=== PATIENT | male | born 1955 | race Two or more races ===

== ENCOUNTER 2017-09-29 06:22 | Emergency (ER) | payer OTHER, MEDICAID ==
[~2017-09-29] VITALS: Ht 170.2 cm; Wt 131.5 kg
[2017-09-29 08:01] VITALS: BP 122/75
== END 2017-09-29 08:01 | disposition home or self-care (01) ==
LOC: ED 06:22
DX: S16.1XXA Strain of muscle, fascia and tendon at neck level, initial encounter (principal); E11.9 Type 2 diabetes mellitus without complications; E78.00 Pure hypercholesterolemia, unspecified; X58.XXXA Exposure to other specified factors, initial encounter; Y93.89 Activity, other specified; Y92.89 Other specified places as the place of occurrence of the external cause; Y99.8 Other external cause status
CPT/HCPCS: J3010

== ENCOUNTER 2018-02-16 16:13 | Emergency (ER) | payer OTHER, MEDICAID ==
[~2018-02-16] VITALS: Ht 170.2 cm; Wt 126.1 kg
[2018-02-16 16:37] VITALS: Ht 170.2 cm; Wt 126.1 kg
[2018-02-16 17:42] LABS: BASOPHIL % 0.2 % (0-2); PLATELET COUNT 134 x10^3mcL (130-400); RED CELL DISTRIBUTION WIDTH 13.8 % (11.5-14.5)
[2018-02-16 17:51] LABS: CALCIUM 9.9 mg/dL (8.5-10.1); CARBON DIOXIDE 29.3 mmol/L (21-32); CREATININE SERUM 2.4 mg/dL (0.7-1.3); POTASSIUM SERUM 4.4 mmol/L (3.5-5.1)
[2018-02-16 17:56] LABS: BILIRUBIN TOTAL 0.7 mg/dL (0.20-1.00); TOTAL PROTEIN, SERUM 7.7 g/dL (6.4-8.2)
[2018-02-16 17:59] LABS: ALBUMIN 2.7 g/dL (3.4-5.0)
[2018-02-16 20:32] VITALS: BP 144/73
== END 2018-02-16 20:32 | disposition home or self-care (01) ==
LOC: ED 16:13
PROVIDERS: Emergency Medicine
DX: R42 Dizziness and giddiness (principal); R53.1 Weakness; E11.65 Type 2 diabetes mellitus with hyperglycemia; I10 Essential (primary) hypertension; E78.00 Pure hypercholesterolemia, unspecified; Z98.890 Other specified postprocedural states
CPT/HCPCS: 36415; 83880; Q0092

== ENCOUNTER 2018-02-19 20:16 | Emergency (ER) | payer OTHER, MEDICAID ==
[~2018-02-19] VITALS: Ht 170.2 cm; Wt 126.6 kg
[2018-02-19 20:18] VITALS: Ht 170.2 cm; Wt 126.6 kg
[2018-02-19 21:08] VITALS: BP 106/60
== END 2018-02-19 21:08 | disposition home or self-care (01) ==
LOC: ED 20:16
DX: B35.4 Tinea corporis (principal); I10 Essential (primary) hypertension; E11.9 Type 2 diabetes mellitus without complications; E78.00 Pure hypercholesterolemia, unspecified

== ENCOUNTER 2018-06-27 17:07 | Observation (INO) | payer OTHER, MEDICAID ==
[~2018-06-27] VITALS: Ht 170.2 cm; Wt 124.7 kg
[2018-06-27 17:12] VITALS: Ht 170.2 cm; Wt 124.7 kg
--- NOTE | 2018-06-27 17:20 | NUR ---
PATIENT PRESENTED TO THE ED WITH SOB AND PRODUCTIVE COUGH. PATIENT STATES THAT PRODUCTIVE COUGH STARTED A WEEK AGO. BREATHING IS LABORED, LUNG SOUNDS CLEAR IN BILATERAL UPPER AND LOWER LOBES. BS X 4 HEARD ON AUSCULATION, ABD SOFT, NON TENDER, NON DISTENDED. PATIENT HAS A HISTORY OF HAVING CARDIAC BYPASS SURGERY, SEVERAL YEARS BACK. PATIENT WAS PLACED ON ALL MONITORS FOR CONTINUED OBSERVATION. GURNEY PLACED IN LOW POSITION, SIDE RAILS UP AND CALL LIGHT WITHIN REACH. WILL CONTINUE TO MONITOR.
--- NOTE | 2018-06-27 18:01 | NUR ---
HHN TX GIVEN. ALBUTEROL 5MG AND ATROVENT 0.5MG.
[2018-06-27 18:06] LABS: BASOPHIL % 0.1 % (0-2); PLATELET COUNT 149 x10^3mcL (130-400); RED CELL DISTRIBUTION WIDTH 13.4 % (11.5-14.5)
--- NOTE | 2018-06-27 18:25 | NUR ---
PATIENT ON GURNEY GETTING RESPIRATORY TREATMENT. PATIENT IS ON 2 L OF O2 VIA NC AND STILL HAVING SOB. PATIENT ALSO PLACED ON LEAD PRINTER. WILL CONTINUE TO MONITOR FOR S/S OF DISTRESS.
--- NOTE | 2018-06-27 19:02 | NUR ---
PATIENT UNABLE TO PROVIDE URINE SAMPLE. WILL CONTINUE TO FOLLOW UP. PATIENT RESTING ON [facility].
[2018-06-27 19:17] LABS: CALCIUM 9.9 mg/dL (8.5-10.1); CARBON DIOXIDE 31.4 mmol/L (21-32); CREATININE SERUM 1.6 mg/dL (0.7-1.3); POTASSIUM SERUM 4.5 mmol/L (3.5-5.1)
--- NOTE | 2018-06-27 19:18 | NUR ---
PT APPEARS TO BE IN NO DISTRESS AT THIS TIME. RT AT BEDSIDE FOR ABG BLOOD DRAW. PT O2 SATURATION WNL. NO DISTRESS NOTED. WILL CONTINUE TO MONITOR.
[2018-06-27 19:29] LABS: ALBUMIN 3.4 g/dL (3.4-5.0); BILIRUBIN TOTAL 0.96 mg/dL (0.20-1.00)
[2018-06-27 19:30] LABS: TOTAL PROTEIN, SERUM 8.8 g/dL (6.4-8.2)
--- NOTE | 2018-06-27 20:24 | NUR ---
RADHA, KNIFEMAN FOR PATIENT'S INSURANCE CALLED STATING THAT PT CANNOT BE ADMITTED DUE TO LACK OF INSURANCE COVERAGE TO THIS HOSPITAL. WOULD LIKE TO TRANSFER PT TO [facility]. PT VERBALIZED THAT HE IS OKAY WITH BEING TRANSFERED OUT. WILL HEAR BACK FROM RADHA AFTER SHE FINDS BED. PT'S FAMILY AWARE.
--- NOTE | 2018-06-27 21:44 | NUR ---
PT'S FAMILY MADE AWARE OF TRANSFER. STILL UNKNOWN WHAT HOSPITAL PT WILL BE GOING TO, BUT PT VERBALIZED UNDERSTANDING.
--- NOTE | 2018-06-27 22:59 | NUR ---
PT TRANSFERED TO TELEMETRY WITH RN AND EMT. PT TOLERATED TRANSFER WELL. REPORT PROVIDED TO HUSSAIN.
[2018-06-27 23:10] VITALS: BP 133/66
--- NOTE | 2018-06-27 23:20 | NUR ---
RECEIVED PT FROM ER, PT ADMIT FOR CHF, PT IS A/O X4, VERBAL RESPONSIVE, ABLE TO TELL WHAT HE NEEDS. LUNG SOUND WHEEZING FLORI, PT IS ON 2L/MIN O2 VIA NC. PO2 94%, DENY ANY SOB AT THIS TIME BUT OCCASIONALLY DRY COUGH, PT IS ON TELE 8, NSR, DENY ANY CHEST PAIN, BOWEL SOUND PRESENT ALL 4 QUADRANTS, NO DISTENTION, NO TENDER. PEDAL PULSE PRESENT BOTH FEE, TRACE EDEMA, RIGHT FOOT ALL TOES ARE AMPUTATED. IV AT LEFT WIRST, NO LEAKING, NO INFILTRATION. ALL ADLS ASSIST, ALL NEED MEET, CALL LIGHT IN REACH, WILL CONTINUE TO MONTIOR.
--- NOTE | 2018-06-27 23:50 | NUR ---
PT IS RESTING IN BED. DENIES ANY PAIN OR DISTRESS AT THIS TIME. EQUAL CHEST RISE AND FALL. ON 2L NC. ON TELE #8, NSR. DENIES ANY CHEST PAIN. AMPUTATED TOES NOTED ON RLE. GENERAL WEAKNESS. TRACE BLE EDEMA NOTED. IV ON L WRIST, 22G. INACT AND PATENT. BOTHER AT BEDSIDE. MED REC COLLECTED. BED IS AT LOWEST SETTING. CALL LIGHT WITHIN REACH. MD MIRAMONTES PAGED FOR ORDERS. WILL CONTINUE TO MONITOR.
[2018-06-28] VITALS (7 sets, daily range): BP systolic 109–143; BP diastolic 56–70
[2018-06-28] MEDS ORDERED: LANTUS SOLOS100 U/M1 SQ (00:12)
[2018-06-28] MEDS ORDERED: HUMALOG100 U/ML SQ (00:14)
[2018-06-28] MEDS ORDERED: LIPITOR40 MG PO (00:14)
[2018-06-28] MEDS ORDERED: JANUVIA100 M1 PO (00:16)
[2018-06-28] MEDS ORDERED: FUROSEMIDE40 MG PO (00:17)
[2018-06-28] MEDS ORDERED: ZESTRIL20 MG PO (00:18)
[2018-06-28] MEDS ORDERED: ASPIR LOW81 MG PO (00:19)
[2018-06-28] MEDS ORDERED: ALDACTONE50 MG PO (00:20)
[2018-06-28] MEDS ORDERED: CARVEDILOL3.125 M1 PO (00:20)
--- NOTE | 2018-06-28 01:51 | NUR ---
PT RESTING IN BED WITH BOTH EYES CLOSED. BREATHING EVEN AND UNLABORED. NO SIGN OF DISTRESS NOTED. ON 2L NC. BROTHER AT BEDSIDE. BED IS AT LOWEST SETTING. CALL LIGHT WIHTIN REACH. WILL CONTINUE TO MONTIOR.
[2018-06-28 06:36] LABS: CALCIUM 9.3 mg/dL (8.5-10.1); CARBON DIOXIDE 26.8 mmol/L (21-32); CREATININE SERUM 1.9 mg/dL (0.7-1.3); POTASSIUM SERUM 4.7 mmol/L (3.5-5.1)
[2018-06-28 07:28] LABS: BASOPHIL % 0.2 % (0-2); PLATELET COUNT 135 x10^3mcL (130-400); RED CELL DISTRIBUTION WIDTH 13.4 % (11.5-14.5)
--- NOTE | 2018-06-28 08:26 | NUR ---
Nutrition Note Nursing trigger received for "poor PO intake >3 days" on 06/28/18. Pt. admitted with CHF per H and P documentations. Pt. noted with no GI distress per skilled helper assessment, and does not meet high risk criteria based on screening. Pt. will be assessed as moderate risk, with initial assessment due 07/01-07/03/18.
--- NOTE | 2018-06-28 10:38 | NUR ---
PT ON BED, AWAKE, ALERT, AND ORIENTED. HAS NO COMPLAINT OF PAIN, SOB, OR DIZZINESS. RESPONDS WELL TO QUESTION AND ANSWER. WHEEZES FLORI LUNG FIELD, SYMMETRICAL CHEST EXPANSION AND UNLABORED. PT ON 2LNC, ACTIVE BOWEL SOUNDS NOTED. NON DISTENDED ABDOMEN. SIDE RAILS UP, CALL LIGHT WITHIN REACH, WILL CONTINUE TO MONITOR
[2018-06-28 11:02] LABS: UA SPECIFIC GRAVITY 1.025 (1.005-1.035); microscopic required? YES; urine erythrocyte 1+ (NEGATIVE)
[2018-06-28 11:51] LABS: AMPHETAMINE QUAL UR NONE DETECTED (See below)
--- NOTE | 2018-06-28 12:00 | NUR ---
PT'S ACCUCHECK SHOWED 438. 18 UNITS OF REGULAR INSULIN GIVEN COVERAGE
--- NOTE | 2018-06-28 12:44 | NUR ---
CHECK PT'S O2 SAT AT ROOM AIR PER DR'S ORDER. PT PLACED ON ROOM AIR FOR 5 MINS. WHEN SATURATION WAS CHECKED IT SHOWED 87-88% SAT WITH LOWEST REACHING 85% ON RA. NASAL CANNULA HAS BEEN PLACED BACK. DR. MIRAMONTES MADE AWARE
--- NOTE | 2018-06-28 16:29 | NUR ---
PT'S ACCUCHECK SHOWED 387. 15 UNITS OF REGULAR INSULIN GIVEN COVERAGE
--- NOTE | 2018-06-28 17:28 | NUR ---
PT ON BED RESTING. BROTHER AT BEDSIDE. WILL CONTINUE TO MONITOR
--- NOTE | 2018-06-28 19:30 | NUR ---
PT IS A/O X4. ON TELE #8, NSR. DENIES ANY CHEST PAIN OR PRESSURE. PULSES ARE PRESENT. EDEMA NOTED ON BLE. LIGHT WHEEZING ON FLORI LOBES. ON 2L NC. DENIES ANY RESP DISTRESS. NON PRODUCTIVE COUGH. BOWEL SOUNDS ACTIVE X4. DENIES ANY ABD PAIN OR DISTRESS. SKIN WARM AND INTACT. DENIES ANY PAIN AT THIS TIME. IV ON L WRIST, SLAINE LOCKED. SITE CLEAN AND INTACT. DENIES ANY PAIN AT THIS TIME. BED IS AT LOWEST SETTING. CALL LIGHT WITHIN REACH. BROTHER IS AT BEDSIDE. WILL CONTINUE TO [facility].
--- NOTE | 2018-06-29 00:50 | NUR ---
PT IS RESTING IN BED WITH BOTH EYES CLOSED. BREATHING EVEN AND UNALBORED. NO SIGN OF DISTRESS NOTED. ON 2L NC. BED IS AT LOWEST SETTING. CALL LIGHT WITHIN REACH. WILL CONTINUE TO MONITOR.
--- NOTE | 2018-06-29 02:00 | NUR ---
ASSUMED CARE OF PATIENT. PATIENT APPEARS COMFORTABLE IN BED ON 2L NC. IV SALINE LOCKED. BED LOCKED AND IN LOWEST POSITION. CALL LIGHT AND BEDSIDE TABLE WITHIN REACH. WILL CONTINUE TO MONITOR.
--- NOTE | 2018-06-29 02:06 | NUR ---
ENDORSE ALL CARE TO ONCOMING NURSE IVELISSE.
[2018-06-29 06:02] VITALS: BP 87/50
[2018-06-29 07:16] LABS: CALCIUM 9.4 mg/dL (8.5-10.1); CARBON DIOXIDE 32.6 mmol/L (21-32); CREATININE SERUM 2.1 mg/dL (0.7-1.3); MAGNESIUM 2.2 mg/dL (1.8-2.4); POTASSIUM SERUM 5.3 mmol/L (3.5-5.1)
[2018-06-29 07:28] LABS: BASOPHIL % 0.1 % (0-2); PLATELET COUNT 147 x10^3mcL (130-400); RED CELL DISTRIBUTION WIDTH 13.6 % (11.5-14.5)
--- NOTE | 2018-06-29 07:30 | NUR ---
SEEN IN BED AAOX4. DENIES PAIN. ON TELE#8 NSR. NO SOB NOTED, BREATHING TX ONGOING BY RT AT BEDSIDE, O2SAT 93% ON CCHO DIET. STATED ABLE TO AMBULATE TO BATHROOM. S/L TO LEFT WRIST INTACT. ON LOVENOX PROPHYLAXIS. PLAN OF CARE DISCUSSED. CALL LIGHT PLACED WITHIN EASY REACH. SIDERAILS UP X2.
--- NOTE | 2018-06-29 07:46 | NUR ---
NO SIGNIFICANT EVENTS THIS SHIFT. CARE ENDORSED TO MARCI ALTAMIRANO.
--- NOTE | 2018-06-29 09:00 | NUR ---
DOCTOR FE MADE AWARE OF BUN/CR =76/2.1, K= 5.3 AND LOW BP 87/33(MAP 52), HR 60. LASIX IV DISCONTINUED.
[2018-06-29 09:10] VITALS: BP 87/33
[2018-06-29 11:00] VITALS: BP 105/53
--- NOTE | 2018-06-29 11:01 | NUR ---
500ML NS BOLUS GIVEN, RECHECKED BP 105/53(MAP 64), HR 67. DENIES HEADACHE OR DIZZINESS. IVF NS AT 100ML/HR CONTINUED.
[2018-06-29 12:05] VITALS: BP 115/62
[2018-06-29 12:21] LABS: CALCIUM 8.7 mg/dL (8.5-10.1); CARBON DIOXIDE 29.8 mmol/L (21-32); CREATININE SERUM 2.2 mg/dL (0.7-1.3); POTASSIUM SERUM 4.4 mmol/L (3.5-5.1)
--- NOTE | 2018-06-29 13:34 | NUR ---
LATEST BUN/CREATININE RESULT AND ULTRASOUND OF KIDNEY NOTIFIED TO DOCTOR MIRAMONTES VIA PHONE. NEW ORDER TO CONSULT NEPHROLOGY, AM LABS AND CANCELLED DISCHARGE MADE. WILL BE CARRIED OUT.
[2018-06-29 15:53] VITALS: BP 103/50
--- NOTE | 2018-06-29 19:42 | NUR ---
DENIES PAIN. TOLERATED TO DIET WELL. BRP. HAD BM TODAY. ALL SCHEDULED MEDS GIVEN. IVF NS TO LT WRIST INFUSING WELL.
--- NOTE | 2018-06-29 20:00 | NUR ---
RECEIVED PT IN BED, A/O X4. RESTING QUIETLY IN BED. DENIES HEADACHE/DIZZINESS. RESP. EVEN AND UNLABORED, 02 AT 3.5L/MIN VIA NC,SAT. 95% , HOB ELEVATED, NO ACUTE DISTRESS NOTED. SR /SB ON THE MONITOR, DENIES CHEST PAIN OR ANY DISCOMFORT. IVF, NS AT 100ML/HR, INTACT AND INFUSING VIA LT WRIST. SITE CLEAR. WITH GEN. WEAKNESS, ABLE TO TURN AND REPOSITION SELF IN BED. NO COMPLAINTS NOTED AT THIS TIME.ASSISTED WITH HS CARE. CALL LIGHT WITHIN REACH. WILL CONTINUE TO MONITOR.
[2018-06-29 20:22] VITALS: BP 94/51
[2018-06-29 21:05] LABS: CREATININE UR 53.9 mg/dL
--- NOTE | 2018-06-29 21:59 | NUR ---
DUE MEDS GIVEN ORDERED, EDD. WELL. WILL CONTINUE TO MONITOR.
--- NOTE | 2018-06-30 02:22 | NUR ---
EYES CLOSED , APPEARS ASLEEP, EASILY AROUSABLE. [address], NO ACUTE DISTRESS NOTED. WILL CONTINUE TO MONITOR.
[2018-06-30 05:03] VITALS: BP 133/72
--- NOTE | 2018-06-30 06:26 | NUR ---
SLEPT WELL DURING THE NIGHT, NO SIGNIFICANT CHANGE NOTED IN PT,S CONDITION. RESP. EVEN AND UNLABORED, [address], EDD. WELL AND SAT. WELL. NO ACUTE DISTRESS NOTED. AFEBRILE AND VITAL SIGNS STABLE. DUE MEDS GIVEN ORDERED. EDD. WELL. IVF INTACT AND INFUSING WELL, SITE CLEAR. KEPT COMFORTABLE. VOIDING FREELY. WILL ENDORSE TO INCOMING NURSE.
[2018-06-30 06:29] LABS: BASOPHIL % 0.3 % (0-2); PLATELET COUNT 137 x10^3mcL (130-400); RED CELL DISTRIBUTION WIDTH 12.8 % (11.5-14.5)
[2018-06-30 06:53] LABS: BILIRUBIN TOTAL 0.4 mg/dL (0.20-1.00); CARBON DIOXIDE 32.2 mmol/L (21-32); CREATININE SERUM 1.6 mg/dL (0.7-1.3); POTASSIUM SERUM 5.1 mmol/L (3.5-5.1)
[2018-06-30 07:00] LABS: ALBUMIN 2.6 g/dL (3.4-5.0)
--- NOTE | 2018-06-30 07:15 | NUR ---
SEEN AAOX4. NO SOB NOTED, O2 3.5L N/C MAINTAINED. TELE# 8 NSR. DENIES CHEST PAIN. STATED ABLE TO AMBULATE TO BATHROOM. IVF NS TO LT WRIST INFUSING AT 100ML/HR. ON LOVENOX SQ PROPHYLAXIS. PLAN OF CARE DISCUSSED. CALL LIGHT PLACED WITHIN EASY REACH. SIDERAILS UP X2.
--- NOTE | 2018-06-30 07:39 | NUR ---
STATED JUST WALKED BACK FROM THE BATHROOM HAD BM. DENIES DISCOMFORT. STATED FEEL BETTER TODAY. ON CCHO DIET. O2 TANK AT BEDSIDE FOR DISCHARGE HOME.
[2018-06-30 09:29] VITALS: BP 113/58
[2018-06-30 14:06] VITALS: BP 131/67
[2018-06-30 16:32] VITALS: BP 117/64
--- NOTE | 2018-06-30 18:17 | NUR ---
NO ANY DISTRESS THROUGHOUT SHIFT. DENIES PAIN. AMBULATORY TO BATHROOM WITH STEADY GAIT. HOME O2 TANK AT BEDSIDE. SPOKE TO REGAL REGUARDING HOME O2 CONCENTRATOR STATED WILL BE DELIVERIED TODAY. IVF NS COMTINUED AT 100ML/HR TO LEFT WRIST IV SITE, NO INFILTRATION NOTED. ALL SCHEDULED MEDS GIVEN.
--- NOTE | 2018-06-30 19:47 | NUR ---
RECEIVED PT FROM DAY SHIFT RN. PT AAOX4, DENIES HEADACHE OR DIZZINESS. TELE #8 NSR HR 75, DENIES CHEST PAIN. DIMININSHED LUNG SOUNDS, NC 2L/MIN NO SOB NOTED. IV LEFT WRIST, PATENT INFUSING WELL. CALL BUTTON WITHIN REACH. WILL CONTINUE TO MONITOR.
[2018-06-30 20:36] VITALS: BP 131/67
--- NOTE | 2018-06-30 23:49 | NUR ---
PT RESTING, NC 2L/MIN NO SIGNS OF DISTRESS NOTED. IV INFUSING WELL. WILL CONTINUE TO MONITOR.
--- NOTE | 2018-07-01 01:15 | NUR ---
RANDOM ACCU CHECK RESULT OF 143. PT DENIES ANY PAIN. NO SIGNS OF DISTRESS NOTED. IV INFUSING WELL. WILL CONTINUE TO MONITOR.
--- NOTE | 2018-07-01 04:26 | NUR ---
ROUNDS MADE. PT IS ASLEEP. BREATHING EVEN AND UNLABORED. NC 2L/MIN IN PLACE, NO SOB NOTED. IV INFUSING WELL. WILL CONTINUE TO MONITOR.
--- NOTE | 2018-07-01 05:25 | NUR ---
PT AWAKE, DENIES ANY PAIN. NO SIGNS OF ACUTE DISTRESS NOTED. NC 2L/MIN NO SOB NOTED. PT SLEPT ON AND OFF THROUGHOUT THE NIGHT, WITH NO SIGNS OF DISTRESS. MEDICATED PER EMAR. IV TO LEFT WRIST PATENT, INFUSING WELL. WILL CONTINUE TO MONITOR AND ENDORSE CARE TO DAY SHIFT RN.
[2018-07-01 05:30] VITALS: BP 129/68
[2018-07-01 06:42] LABS: CALCIUM 8.6 mg/dL (8.5-10.1); CARBON DIOXIDE 30.6 mmol/L (21-32); CREATININE SERUM 1.3 mg/dL (0.7-1.3); POTASSIUM SERUM 5.3 mmol/L (3.5-5.1)
--- NOTE | 2018-07-01 07:02 | NUR ---
SEEN IN BED AAOX4. NO RESP DISTRESS NOTED. O2 2LPM N/C MAINTAINED. DENIES PAIN. DIMINISHED LUNG SOUND. GEN BODY WEAKNESS. ABLE TO AMBULATE TO BATHROOM. ON CCHO DIET. LAST BM WAS 06/30/18. STATED VOIDS FREELY. IVF NS TO LT WRIST INFUSING WELL. TELE# 8 NSR. OWN O2 TANK AT BEDSIDE. PLAN OF CARE DISCUSSED. CALL LIGHT PLACED WITHIN EASY REACH. SIDERAILS UP X2.
--- NOTE | 2018-07-01 07:11 | NUR ---
PATIENT AWAKE TALKING ON THE PHONE, NO SIGNS OF DISTRESS NOTED. ENDORSED CARE TO DAY SHIFT RN, ALL QUESTIONS ADDRESSED.
[2018-07-01 08:46] LABS: PLATELET COUNT 131 x10^3mcL (130-400); RED CELL DISTRIBUTION WIDTH 13.2 % (11.5-14.5)
[2018-07-01 08:47] LABS: BASOPHIL % 0.8 % (0-2)
[2018-07-01 10:28] VITALS: BP 136/70
--- NOTE | 2018-07-01 14:35 | NUR ---
SEEN BY DOCTOR ZORAIDA, PATIENT WILL BE DISCHARGED HOME TODAY. PATIENT VERBALIZED UNDERSTANDING.
--- NOTE | 2018-07-01 15:30 | NUR ---
DISCHARGE INSTRUCTION/PRESCRITION GIVEN TO PATIENT. PATIENT VERBALIZED UNDERSTANDING. IV CATHETER TO LEFT WRIST REMOVED NO SIGNS OF INFECTION NOTED, DRSG APPLIED. TELE#8 RETURNED TO ND. DENIES DISCOMFORT AT THIS TIME. WILL BE DISCHARGED HOME VIA O2 2LPM N/C VIA OWN O2TANK. PER PATIENT O2 CONCENTRATOR ALREADY DELIVERIED AT HOME SINCE LAST NIGHT.
--- NOTE | 2018-07-01 15:35 | NUR ---
SEEN BY DOCTOR CONWAY, PER DOCTOR CONWAY PATIENT WILL BE DISCHARGED HOME TODAY.
--- NOTE | 2018-07-01 16:30 | NUR ---
BROUGHT VIA WHEELCHAIR TO LOBBY. NO ANY DISTRESS NOTED. PICKED UP BY [employer]IVATE AUT[employer].
== END 2018-07-01 16:35 | disposition home or self-care (01) | DRG 291 ==
LOC: ED 17:07 → DU 22:20
PROVIDERS: Emergency Medicine; Internal Medicine Nephrology; Internal Medicine Pulmonary Disease; ADMIT Internal Medicine Pulmonary Disease
DX: I13.0 Hypertensive heart and chronic kidney disease with heart failure and stage 1 through stage 4 chronic kidney disease, or unspecified chronic kidney disease (principal); I50.43 Acute on chronic combined systolic (congestive) and diastolic (congestive) heart failure; N17.0 Acute kidney failure with tubular necrosis; J96.11 Chronic respiratory failure with hypoxia; E87.3 Alkalosis; Z68.41 Body mass index [BMI] 40.0-44.9, adult; N18.3 Chronic kidney disease, stage 3 (moderate); J20.9 Acute bronchitis, unspecified; J45.909 Unspecified asthma, uncomplicated; E11.22 Type 2 diabetes mellitus with diabetic chronic kidney disease; E78.5 Hyperlipidemia, unspecified; F11.11 Opioid abuse, in remission; E66.01 Morbid (severe) obesity due to excess calories; Z79.4 Long term (current) use of insulin; Z89.421 Acquired absence of other right toe(s); Z95.1 Presence of aortocoronary bypass graft; Z87.891 Personal history of nicotine dependence
CPT/HCPCS: 82962; 83880; 87804; G0378; J1650; J1815; J1940; J2930; J7030; J7040; J7613; J7620; J7644; Q0092

== ENCOUNTER 2018-12-24 14:22 | Emergency (ER) | payer OTHER ==
[~2018-12-24] VITALS: Ht 170.2 cm; Wt 127.9 kg
[~2018-12-24 14:22] MED LIST: ALDACTONE50 MG PO; ASPIR LOW81 MG PO; CARVEDILOL3.125 M1 PO; FUROSEMIDE40 MG PO; HUMALOG100 U/ML SQ; JANUVIA100 M1 PO; LANTUS SOLOS100 U/M1 SQ; LIPITOR40 MG PO; ZESTRIL20 MG PO
[2018-12-24 14:43] VITALS: BP 115/64; Ht 170.2 cm; Wt 127.9 kg
== END 2018-12-24 16:25 | disposition home or self-care (01) ==
LOC: ED 14:22
DX: S80.02XA Contusion of left knee, initial encounter (principal); I10 Essential (primary) hypertension; E11.9 Type 2 diabetes mellitus without complications; E78.00 Pure hypercholesterolemia, unspecified; W10.8XXA Fall (on) (from) other stairs and steps, initial encounter; Y93.89 Activity, other specified; Y92.89 Other specified places as the place of occurrence of the external cause; Y99.8 Other external cause status

== ENCOUNTER 2019-01-20 21:01 | Emergency (ER) | payer OTHER ==
[~2019-01-20] VITALS: Ht 170.2 cm; Wt 128.4 kg
[2019-01-20 21:06] VITALS: Ht 170.2 cm; Wt 128.4 kg
[2019-01-20 22:50] LABS: BASOPHIL % 0.7 % (0-2); PLATELET COUNT 177 x10^3mcL (130-400); RED CELL DISTRIBUTION WIDTH 14.2 % (11.5-14.5)
[2019-01-20 23:04] LABS: CALCIUM 9.5 mg/dL (8.5-10.1); CARBON DIOXIDE 30.6 mmol/L (21-32); CHLORIDE SERUM 98 mmol/L (98-107); GFR1 36 mL/min; GLUCOSE SERUM 252 mg/dL (74-106); POTASSIUM SERUM 3.9 mmol/L (3.5-5.1); SODIUM SERUM 137 mmol/L (136-145)
[2019-01-20 23:13] LABS: ALKALINE PHOSPHATASE 182 U/L (46-116); ALT/SGPT 30 U/L (16-63); AST/SGOT 25 U/L (15-37); TOTAL PROTEIN, SERUM 8.1 g/dL (6.4-8.2)
[2019-01-20 23:14] LABS: ALBUMIN 3.3 g/dL (3.4-5.0)
[2019-01-20 23:42] LABS: UA SPECIFIC GRAVITY 1.025 (1.005-1.035); microscopic required? YES; urine erythrocyte 1+ (NEGATIVE)
[2019-01-20 23:42] LABS: ERYTHROCYTE SED RATE 93 mm/hr (0-20)
[2019-01-21 04:21] VITALS: BP 127/65
== END 2019-01-21 04:21 | disposition short-term general hospital (02) ==
LOC: ED 21:01
PROVIDERS: Emergency Medicine
DX: L03.115 Cellulitis of right lower limb (principal); L97.519 Non-pressure chronic ulcer of other part of right foot with unspecified severity; I10 Essential (primary) hypertension; E11.9 Type 2 diabetes mellitus without complications; E78.00 Pure hypercholesterolemia, unspecified
CPT/HCPCS: J2270; J2405; J2543; J7030; Q0092

== ENCOUNTER 2019-10-14 14:16 | Emergency (ER) | payer OTHER ==
[~2019-10-14] VITALS: Ht 170.2 cm; Wt 127.0 kg
[2019-10-14 14:22] VITALS: Ht 170.2 cm; Wt 127.0 kg
[2019-10-14 16:43] VITALS: BP 122/64
== END 2019-10-14 16:43 | disposition home or self-care (01) ==
LOC: ED 14:16
DX: S80.01XA Contusion of right knee, initial encounter (principal); S40.011A Contusion of right shoulder, initial encounter; W10.9XXA Fall (on) (from) unspecified stairs and steps, initial encounter; I10 Essential (primary) hypertension; E11.9 Type 2 diabetes mellitus without complications; Z98.890 Other specified postprocedural states; Y93.89 Activity, other specified; Y92.89 Other specified places as the place of occurrence of the external cause; Y99.8 Other external cause status
CPT/HCPCS: J1885

== ENCOUNTER 2020-03-26 09:45 | Inpatient (IN) | payer OTHER, SELFPAY ==
[~2020-03-26] VITALS: Ht 170.2 cm; Wt 145.7 kg
[~2020-03-26 09:45] MED LIST changes: +ACIDOPHILUS LA1 EACH PO; +ASPIR 8181 MG PO; +ATORVASTATIN CA40 M1 PO; +FERROUS SULFAT325 M2 PO; +LEVAQUIN500 M1 PO; +MEDDP PO; +METFORMIN HCL1000 MG PO; +PROVENTIL0.09 MG/A1 INH; +TESSALON PERLE100 MG PO; +VITAMIN C100 M2 PO; +ZITHROMAX500 MG PO; +[UNRECOGNIZED DRUG - OTHER] PO
[2020-03-26 10:01] VITALS: Ht 170.2 cm; Wt 145.7 kg
--- NOTE | 2020-03-26 10:19 | NUR ---
PLACED IN BED 12 FOR EVAL.
--- NOTE | 2020-03-26 10:43 | NUR ---
PATIENT ARRIVED FROM HOME, C/O SOB X2 MONTHS AND LEFT LEG PAIN X2 MONTHS. PATIENT STATES 9/10 PAIN AT THIS TIME. NOTED LEFT LE ULCERS AND SWELLING, PER PATIENT X2 MONTHS, HAD BEEN TAKING ANTIBIOTICS, RAN OUT, PAIN STARTED YESTERDAY .PATIENT AAOX4, AUDIABLE WHEEZING NOTED, PATIENT PLACED ON 2L OF O2 BY TRIAGE NURSE, NOTED RIGHT BELOW THE KNEE AMPUTAION (PATIENT WEARING PROSTATIC LEG), PATIENT GOWNED, SAFETY PRECaution, awaiting mse, call light within reach.
--- NOTE | 2020-03-26 11:11 | NUR ---
DR. COBB AT BEDSIDE FOR MSE AT THIS TIME
--- NOTE | 2020-03-26 11:18 | NUR ---
PATIENT O2 TURNED OF PER DR. COBB. PROVIDED PATIENT WITH PILLOW, POSITION HEAD OF BED TO COMFORT LEVEL, CALL LIGHT WITHIN REACH.
--- NOTE | 2020-03-26 11:29 | NUR ---
PATIENT STATES HE CAN NOT PROVIDE ANY URINE AT THIS TIME. PROVIDED PATIENT WITH URINAL AT BEDSIDE, CALL LIGHT WITHIN REACH.
--- NOTE | 2020-03-26 11:30 | NUR ---
LAB AT BEDSIDE AND RT
--- NOTE | 2020-03-26 11:39 | NUR ---
XRAY AT BEDSIDE
--- NOTE | 2020-03-26 12:25 | NUR ---
US AT BEDSIDE AT THIS TIME.
[2020-03-26 12:28] LABS: BILIRUBIN TOTAL 0.61 mg/dL (0.20-1.00); C REACTIVE PROTEIN 3.9 mg/dL (<=0.9); CALCIUM 8.9 mg/dL (8.5-10.1); CARBON DIOXIDE 27.9 mmol/L (21-32); CREATININE SERUM 1.5 mg/dL (0.7-1.3); POTASSIUM SERUM 4.1 mmol/L (3.5-5.1); TOTAL PROTEIN, SERUM 7.5 g/dL (6.4-8.2)
[2020-03-26 12:37] LABS: ALBUMIN 2.8 g/dL (3.4-5.0)
[2020-03-26 12:43] LABS: BASOPHIL % 0.8 % (0-2)
[2020-03-26 12:45] LABS: PLATELET COUNT 114 x10^3mcL (130-400); RED CELL DISTRIBUTION WIDTH 16.2 % (11.5-14.5)
--- NOTE | 2020-03-26 13:00 | NUR ---
PATIENT ATTEMPTED TO PROVIDE URINE. I ATTEMPTED TO COLLECT URINE USING SRAIGHT CATH, UNABLE TO ADVANCE CATHETER, NOTIFIED DR. COBB. CALL LIGHT RISSA MELTON.
--- NOTE | 2020-03-26 14:11 | NUR ---
PROVIDED PATIENT WITH FOOD AND OJ, PER DR. REZA MILTON. NAD NOTED AT THIS TIME, CALL LIGHT WITHIN REACH.
[2020-03-26] MEDS ORDERED: GLIPIZIDE XL5 M2 PO (15:34)
[2020-03-26] MEDS ORDERED: TIROSINT25 MC1 PO (15:35)
[2020-03-26] MEDS ORDERED: VITAMIN-D1000 IU PO (15:36)
--- NOTE | 2020-03-26 16:11 | NUR ---
PATIENT MEDICATED WITH FUROSEMIDE IV AND ROCEPHIN IV, PLEASE SEE EMAR, PATIENT TOLERATED WELL, CALL LIGHT DAMION MELTON.
--- NOTE | 2020-03-26 16:16 | NUR ---
ASSISTED PATIENT WITH URINEAL, CALL LIGHT WITHIN REACH
--- NOTE | 2020-03-26 16:51 | NUR ---
VANCOMYCIN IV STARTED, PLEASE SEE EMAR, PATIENT TOLERATING WELL, CALL LIGHT WITHIN REACH.
[2020-03-26 17:06] LABS: UA SPECIFIC GRAVITY 1.025 (1.005-1.035); microscopic required? YES; urine erythrocyte 1+ (NEGATIVE)
--- NOTE | 2020-03-26 17:33 | NUR ---
ASSISTED PATIENT WITH URINAL, CALL LIGHT WITHIN REACH.
--- NOTE | 2020-03-26 17:41 | NUR ---
DINNER TRAY PLACED AT BEDSIDE FOR PATIENT.
--- NOTE | 2020-03-26 19:11 | NUR ---
REPORT GIVEN TO DARRIN ALTAMIRANO TO ASSUME PATIENT CARE
--- NOTE | 2020-03-26 19:41 | NUR ---
PT SITTING UP IN GURNEY, AAO X4, C/O 3/10 LEG PAIN. AUDIBLE WHEEZING NOTED WITH LABORED BREATHING, SATURATING AT 96% RA, O2 APPLIED @2LPM TO ASSIST WITH SOB. NOTICEABLE EDEMA THROUGHOUT, LOWER LEFT EXTREMITY WITH ULCERS TO BACK OF LEG AND AROUND LEFT ANKLE, ULCER TO FRONT OF LEFT ANKLE WITH MODERATE YELLOW DRAINAGE. BELOW THE KNEE AMPUTATION TO RIGHT LEG WITH PROSTETIC LEG. ABDOMEN IS DISTENDED, PT REQUIRES ASSISTANCE WITH ADL'S AND ALL CARE, ASSISTED PT TO USE URINAL, URINATED 400 ML OF YELLOW URINE. VSS, 20 G IV IN LEFT HAND, FLUSHES FREELY WITH 10 CC NS. CALL LIGHT WITHIN REACH, WILL MONITOR.
--- NOTE | 2020-03-26 20:40 | NUR ---
PT IN ED ORALIA, PROVIDED URINAL PT URINATED 400 ML OF YELLO URINE. IV ANTIBIOTICS STARTED, VSS. PAIN 12/01 WILL PROVIDE PAIN MEDICATION TO SYMPTOM RELIEF. INFORMED PT WE ARE STILL WAITING FOR A BED
--- NOTE | 2020-03-26 20:53 | NUR ---
PT DOES NOT WANT MORPHINE FOR SEVERE PAIN, PT STATES HE WILL TAKE NORCO FOR MODERATE PAIN.
--- NOTE | 2020-03-26 22:16 | NUR ---
ARTURO TO CALL ED BACK FOR REPORT
--- NOTE | 2020-03-26 22:46 | NUR ---
ATTEMPTED TO CALL AND GIVE REPORT TO ARTURO AGAIN WITH NO SUCCESS
--- NOTE | 2020-03-26 22:58 | NUR ---
REPORT CALLED TO ARTURO ALTAMIRANO WHO WILL RESUME CARE FOR PT
--- NOTE | 2020-03-26 23:25 | NUR ---
RECEIVED PATIENT FROM ER VIA GUERNEY, TRANSPORT ASSIST PATIENT UP IN BED, ALERT AND ORIENTED, MILD RESP DISTRESS NOTED FROM EXERTION, AUDIBLE WHEEZES NOTED, ALLOW PATIENT SITUATED IN BED, O2 4LNC. PLACE T #12 NSR, HR 64 NOTED. O2SAT 100%. SOB AND LABORED BREATHING NOTED FROM EXERTION. PT ABLE TO ANSWER QUESTIONS OCCAS PAUSE TO CATCH BREATHS, ASSIST PT W/ URINAL PATIENT UNABLE TO HELP HIM SELF. CALL LIGHT WITHIN REACH, CARE ENDORSE TO ARTURO ALTAMIRANO TO TAKE WOUND PIC AND CULTURE.
[2020-03-26 23:54] VITALS: BP 140/77
--- NOTE | 2020-03-27 02:32 | NUR ---
PHOTO TAKEN ON PATIENT'S WOUNDS, WOUND CULTURE SENT.
--- NOTE | 2020-03-27 06:22 | NUR ---
BLOOD SUGAR THIS MORNING IS WAS 58, GIVEN D50, 50ML ORDERED. RECHECKED BLOOD SUGAR AND IT WENT UP TO 171. PATIENT WAS ASYMPTOMATIC.
[2020-03-27 06:57] VITALS: BP 108/46
--- NOTE | 2020-03-27 07:05 | NUR ---
RECEIVED REPORT FROM PRODUCTION CONTROL COORDINATING CLERK RN. PT IN BED AWAKE, ALERT, ABLE TO MAKE NEEDS KNOWN. ON DROPLET PRECAUTION FOR PUI COVID. ON 4LPM VIA NC 95%02 SAT WITH MILD AUDIBLE WHEEZING, DENIES SOB. ON TELE 12, DENIES CHEST PAIN/PRESSURE. IV SITE TO SALINE LOCK. DENIES PAIN OR DISCOMFORT AT THIS TIME. BED IN LOWEST POSITION. CALL LIGHT WITHIN REACH. WILL CONTINUE TO MONITOR.
[2020-03-27 07:48] LABS: BILIRUBIN TOTAL 0.5 mg/dL (0.20-1.00); CALCIUM 8.8 mg/dL (8.5-10.1); CARBON DIOXIDE 26.4 mmol/L (21-32); CREATININE SERUM 1.5 mg/dL (0.7-1.3); MAGNESIUM 2.2 mg/dL (1.8-2.4); POTASSIUM SERUM 4.5 mmol/L (3.5-5.1); TOTAL PROTEIN, SERUM 6.9 g/dL (6.4-8.2)
[2020-03-27 07:50] LABS: ALBUMIN 2.7 g/dL (3.4-5.0); CHOLESTEROL/HDL RATIO 2.2
[2020-03-27 08:34] LABS: PLATELET COUNT 99 x10^3mcL (130-400); RED CELL DISTRIBUTION WIDTH 15.8 % (11.5-14.5)
[2020-03-27 10:10] VITALS: BP 99/53
[2020-03-27 11:57] VITALS: BP 109/46
[2020-03-27 16:56] VITALS: BP 117/51
--- NOTE | 2020-03-27 19:20 | NUR ---
PT IN BED AWAKE AND ALERT. PUI STATUS FOR COVID19, PCR RESULT STILL PENDING. ON 4LPM VIA NC, NOTED WITH AUDIBLE WHEEZING. ON TELE 12, DENIES CHEST PAIN/PRESSURE. NO ACUTE RESPIRATORY DISTRESS. IV SITE TO SALINE LOCK. DENIES PAIN OR DISCOMFORT AT THIS TIME. BED IN LOWEST POSITION. ENDORSE CARE TO INCOMING RN.
--- NOTE | 2020-03-27 19:55 | NUR ---
PT RECIEVED AWAKE ALERT AND ORIENTED,REG RESP WITH AUDIBLE WHEEZZING AND DIMINSIHED TO FLORI LOWER BASES ON 3L N/C SAT 94%,HOB,ABDO IS FIRM OBSES AND WITH ACTIVE BOWEL SOUNDS,PT HAS RT BKA AND THE LT LEG WITH WOUND WHICH IS DRAINING WITH GREENISH,YELLOWISH SECREATION,PT WITH EDEMA TO THE LT LEG AND NO ABLE TO PALPATE THE PULSES PT ON TELE MONITOR AND IN NSR NO ECTOPY OR CHEST PAIN AT THIS TIME,KEPT BED IN THE LOW POSITION AND LOCKED,KEPT CLEAN AND DRY TO TOUCH AND WILL CONTINUE TO MONITOR.
[2020-03-27 20:30] VITALS: BP 115/63
--- NOTE | 2020-03-27 23:13 | NUR ---
PT HAVING BREATHING TREAMENT HOB AND WILL CONTINUE TO MONITOR.
--- NOTE | 2020-03-28 02:54 | NUR ---
PT SLEEPING SOUNDLY AND WILL CONTINUE TO MONITOR.
[2020-03-28 05:30] VITALS: BP 105/55
--- NOTE | 2020-03-28 06:09 | NUR ---
PT HAD ARESTING NIGHT NO CHANGE AT THIS TIME,WILL CONTINUE TO MONITOR.
--- NOTE | 2020-03-28 07:35 | NUR ---
PT RESTING AT THIS TIME,REG RESP NO SOB AUDIBLE WHEEZING AND DIMINISHED TO FLORI LOWER BASES,PT ON 3L N/C SAT 96%,ABDO IS SOFT OBESE WITH ACTIVE BOWEL SOUNDS,PT HAS WITH THE SITE PATENT AND INTACT,PT HAS ULCERS TO THE LT EG WHICH IS SECREATION WITH GREENISH AND YELLOWISH IN COLOR,PT HAS RT BKA AND HAS PROTHESIS AT THE BEDSIDE,BED IN THE LOW POSITION AND LOCKED,KEPT CLEAN AND DRY TO TOUCH AND WILL CONTINUE TO MONITOR.
--- NOTE | 2020-03-28 07:47 | NUR ---
CALLED FROM THE LAB WITH RESULTS OF PATIENT POSITIVE MRSA,WILL NOTIFY THE MD,WILL CONTINUE TO MONITOR.
[2020-03-28 08:29] LABS: BASOPHIL % 0.6 % (0-2)
[2020-03-28 08:47] VITALS: BP 105/45
[2020-03-28 08:49] LABS: PLATELET COUNT 95 x10^3mcL (130-400); RED CELL DISTRIBUTION WIDTH 16.9 % (11.5-14.5)
[2020-03-28 09:16] LABS: BILIRUBIN TOTAL 0.53 mg/dL (0.20-1.00); CALCIUM 9.1 mg/dL (8.5-10.1); CARBON DIOXIDE 30.6 mmol/L (21-32); CREATININE SERUM 1.9 mg/dL (0.7-1.3); MAGNESIUM 2.4 mg/dL (1.8-2.4); TOTAL PROTEIN, SERUM 7.2 g/dL (6.4-8.2)
[2020-03-28 09:27] LABS: ALBUMIN 2.7 g/dL (3.4-5.0)
[2020-03-28 09:28] LABS: POTASSIUM SERUM 5.6 mmol/L (3.5-5.1)
--- NOTE | 2020-03-28 09:47 | NUR ---
charu to the [facility] dr mon information manager to notify of patient k+ level 5.6,positive for mrsa and whether can order consult for patients the leg ulcers,waiting to be call back and will continue to monitor.
--- NOTE | 2020-03-28 09:53 | NUR ---
DR WASHINGTON CALL BACK WITH ORDERS,WILL CONTINE TO MONITOR.
--- NOTE | 2020-03-28 11:18 | NUR ---
PT WITH C/O OF PSIN ARCHING TO THE LT LEG WITH OPEN ULCERS,PT WAS MEDICATED WITH MORHINE 4 MG IV ORDER AND WILL ENDORSED TO THE NURSE TO FOLLOW UP,WILL CONTINUE TO MONITOR.
--- NOTE | 2020-03-28 11:19 | NUR ---
EDORSED TO FOLLW UP CARE.
--- NOTE | 2020-03-28 11:30 | NUR ---
RECEIVED PT REPORT ASSUMING PT CARE RESPONSABILITY.
[2020-03-28 12:51] VITALS: BP 101/49
--- NOTE | 2020-03-28 13:45 | NUR ---
REC'D REPORT FROM TAL RN. NO COMPLAINTS AT THIS TIME. BREATHING EVEN/UNLABORED ON 3L NC. TELE 12, HR 65. WILL CONTINUE TO MONITOR.
--- NOTE | 2020-03-28 15:59 | NUR ---
PT RESTING IN BED WITH AUDIBLE WHEEZE. DENIES DISTRESS. BREATHING EVEN/UNLABORED ON 3L NC, SPO2 100%. REDUCED TO 2L NC, SPO2 98%. PT C/O DRY NARES. LUBRICANT APPLIED. FEELS BETTER AFTER APPLICATION. IV TO LH DISLODGED WITH CATHETER INTACT. IV TO LFA 22G INSERTED.
[2020-03-28 17:08] VITALS: BP 102/51
--- NOTE | 2020-03-28 18:18 | NUR ---
PT AWAKE AND RESTING IN BED. BREATHING EVEN/UNLABORED ON 2L NC, SPO2 100%. MILD AUDIBLE WHEEZE. DENIES ANY RESP DISTRESS. NO SIGNIFICANT CHANGES DURING SHIFT. CALL LIGHT WITHIN REACH, BED AT LOWEST POSITION. WILL ENDORSE TO NIGHT NURSE.
--- NOTE | 2020-03-28 21:30 | NUR ---
RECEIVED AWAKE, ALERT, ORIENTED X4, BREATH SOUNDS DIMINISHED ON THE BASES WITH EXPIRATORY WHEEZING NOTED. O2 AT 2LPM VIA N/C WITH O2 SAT 95%. DENIES ANY PAIN, SR ON THE MONITOR. RIGHT BKA NOTED, LLE WITH OPEN WOUND AND DRESSING DRY AND INTACT. PLAN OF CARE NOTED AND IMPLEMENTED, ALL NEEDS ATTENDED, KEPT COMFORTABLE IN BED, WILL CONTINUE TO MONITOR.
[2020-03-28 21:43] VITALS: BP 125/60
--- NOTE | 2020-03-29 | NUR ---
RESTING IN BED, O2 AT 2LPM VIA N/C WITH O2 SAT 95%, NO ACUTE DISTRESS NOTED, WILL CONTINUE TO MONITOR.
--- NOTE | 2020-03-29 05:33 | NUR ---
C/O LLE PAIN, NORCO 1 TAB PO GIVEN, ALL NEEDS ATTENDED, WILL CONTINUE TO MONITOR.
[2020-03-29 06:10] VITALS: BP 114/54
--- NOTE | 2020-03-29 06:56 | NUR ---
SLEPT FAIRLY AT NIGHT, VSS, REMAIN ON O2 AT 2LPM VIA N/C. NO ACUTE DISTRESS NOTED, WILL CONTINUE TO MONITOR.
[2020-03-29 08:06] LABS: BILIRUBIN TOTAL 0.48 mg/dL (0.20-1.00); CALCIUM 8.8 mg/dL (8.5-10.1); CARBON DIOXIDE 29.7 mmol/L (21-32); CREATININE SERUM 2.3 mg/dL (0.7-1.3); MAGNESIUM 2.3 mg/dL (1.8-2.4); TOTAL PROTEIN, SERUM 7.2 g/dL (6.4-8.2)
[2020-03-29 08:55] VITALS: BP 129/46
[2020-03-29 09:30] LABS: ALBUMIN 2.7 g/dL (3.4-5.0); POTASSIUM SERUM 5.8 mmol/L (3.5-5.1)
--- NOTE | 2020-03-29 09:52 | NUR ---
NOTIFIED DR WASHINGTON THAT K- 5.8. RECEIVED ORDER FOR [facility]. ATTENDING NURSE ELINA MADE AWARE.
[2020-03-29 10:18] LABS: BASOPHIL % 0.5 % (0-2)
[2020-03-29 10:48] LABS: PLATELET COUNT 84 x10^3mcL (130-400); RED CELL DISTRIBUTION WIDTH 16.8 % (11.5-14.5)
[2020-03-29 13:25] VITALS: BP 123/67
[2020-03-29 17:18] VITALS: BP 127/44
[2020-03-29 21:47] VITALS: BP 106/58
--- NOTE | 2020-03-29 22:26 | NUR ---
SPOKE WITH DR HDEZ, MADE AWARE OF PCR TEST RESULT WHICH IS NEGATIVE. MAY DISCONTINUE ISOLATION NOW.
--- NOTE | 2020-03-30 | NUR ---
@0000 TRANSFERED PT TO 240 B; HAD DC ISOLATION; REPORT GIVEN TO ADARSH CANNON FOR CONTINUITY OF CARE; PT IS ALERT AND ORIENTED; NOT IN RESP DISTRESS; WITH 02 @ 2LPM VIA NC.
--- NOTE | 2020-03-30 00:20 | NUR ---
PT RECIEVED FROM 2S RN. PT RESTING IN BED AT THIS TIME. DENIES PAIN OR DISCOMFORT. PT BREATHING E/U ON 2L NC. NO S/S OF ACUTE DISTRESS NOTED. ALL NEEDS AND CONCERNS ADDRESSED. WILL CONTINUE TO MONITOR.
[2020-03-30 06:00] VITALS: BP 100/48
--- NOTE | 2020-03-30 06:22 | NUR ---
PT RESTING IN BED AT THIS TIME. DENIES PAIN OR DISCOMFORT. BREATHING E/U ON 2L NC. NO S/S OF ACUTE DISTRESS NOTED. ALL NEEDS AND CONCERNS ADDRESSED. WILL ENDORSE TO DAY NURSE.
[2020-03-30 07:20] LABS: BASOPHIL % 0.8 % (0-2)
--- NOTE | 2020-03-30 07:30 | NUR ---
RECEIVED REPORT FROM [facility] HELPER NURSE. PT IS A/OX4. TELE#12. NSR. DENIES CP AT THIS TIME. PT IS ON 2LNC. O2 SAT 98%. 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 PROSTHESIS IS IN THE ROOM. PT HAS LLE PITTING EDEMA +2. LLE WOUND WITH DRESSING. IV TO LH, PATENT, SL. PT IS ON FLUID RESTRICTIONS 1.5L. ALL PROTOCOLS IN PLACE.
[2020-03-30 07:38] LABS: BILIRUBIN TOTAL 0.47 mg/dL (0.20-1.00); CALCIUM 8.9 mg/dL (8.5-10.1); CARBON DIOXIDE 29.5 mmol/L (21-32); CREATININE SERUM 2.4 mg/dL (0.7-1.3); MAGNESIUM 2.3 mg/dL (1.8-2.4); POTASSIUM SERUM 4.8 mmol/L (3.5-5.1); TOTAL PROTEIN, SERUM 7.2 g/dL (6.4-8.2)
[2020-03-30 07:42] LABS: ALBUMIN 2.7 g/dL (3.4-5.0)
[2020-03-30 07:52] LABS: PLATELET COUNT 84 x10^3mcL (130-400); RED CELL DISTRIBUTION WIDTH 15.3 % (11.5-14.5)
--- NOTE | 2020-03-30 07:57 | NUR ---
RECEIVED PHONE CALL FROM LAB: BUN 67.0 (TRENDING UP). CALLED DR VILLANUEVA. AWAITING FOR CALL BACK.
--- NOTE | 2020-03-30 08:06 | NUR ---
RECEIVED CALL BACK FROM DR VILLANUEVA. RECEIVED ORDER TO DISCONTINUE LASIX IV PUSH DUE TO ELEVATED BUN 67 (TRENDING UP).
[2020-03-30 08:40] VITALS: BP 150/54
--- NOTE | 2020-03-30 11:00 | NUR ---
PT WAS SEEN BY DR VILLANUEVA. DR VILLANUEVA IS AWARE OF GENERALIZED SWELLING. PER DR VILLANUEVA, NO ORDER AT THIS TIME. AWAITING ON ECHO RESULT.
[2020-03-30 13:45] VITALS: BP 126/50
--- NOTE | 2020-03-30 15:50 | NUR ---
RECIVED ORDER TO DISCHARGE PT. DISCHARGE INSTRUCTIONS GIVEN AND EXPLAINED TO PT AND DAUGHTER ABOUT FOLLOW-UP APPOITMENTS/MEDICATIONS/BRACE INSTRUCTIONS. PT AND DAUGHTER VERBALIZES UNDERSTANDING. DC IV WITH CATH INTACT PER DISCHARGE ORDER. TOOK OFF TELE MONITOR. AT 1549 PT DISCHARGED IN STABLE CONDITION WITH ALL HER BELONGINGS. PT WAS TRANSFERED VIA WHEELCHAIR AND PICKED UP BY HER DAUGHTER.
--- NOTE | 2020-03-30 16:35 | NUR ---
WOUND CULTURE AND SENSITIVITY CAME BACK. NOTIFIED DR. VILLANUEVA. PER DR VILLANUEVA, KEEP ROCEPHIN IV. NO NEW ORDERS.
[2020-03-30 17:53] VITALS: BP 101/57
--- NOTE | 2020-03-30 18:14 | NUR ---
PT IS A/OX4. TELE #12. [id number]. PT IS ON 2LNC, O2 SAT 95%. LLE +3 PITTING EDEMA. L FOOT WOUND, SOME SEROUS DRAINAGE. R BKA, PROSTHESIS AT BEDSIDE, WHEELCHAIR AT BEDSIDE. PT STARTED ON LASIX DRIP 10ML/HR. ROCEPHIN WAS GIVEN PER EMAR. PT IS ON 1500ML/DAY FLUID RESTRICTION. ALL PROTOCOLS IN PLACE. WILL ENDORSE CARE TO ONCOMING NURSE.
[2020-03-30 20:14] VITALS: BP 132/46
--- NOTE | 2020-03-30 23:55 | NUR ---
ASSESSED PT AT BEGINNING OG NOC SHIFT. PT RESTING IN BED COMFORTABLY. EASILY AWOKEN AND ALERT AND ORIENTED X3. PT DENIES PAIN AT THIS TIME. PT ON 2L NC WITH AUDIBLE WHEEZING. SATURATION 97%. LUNG SOUNDS DIMINISHED WITH BILATERAL LOWER WHEEZES PRESENT. PT DENIES SOB OR ACUTE DISTRESS. NO INTERCOSTAL MUSCLES IN USE UPON ASSESSMENT. S1 AND S2 HEARD. TELE 12 WITH NSR. HR IN 60'S. PT DENIES CHEST PAIN AT THIS TIME. BOWEL SOUNDS ACTIVE AND PRESENT X4. LAST BM 03/29. PT VOIDS IN BEDSIDE URINAL WITH ASSISTANCE DUE TO OBESITY. GENERALIZED EDEMA WITH PITTING EDEMA IN LEFT LOWER EXTREMITY. PT HAS RBL AMPUTATION. DECREASED SENSATION NOTED IN BOTH LOWER EXTREMITIES UPON ASSESSMENT. L PEDAL PULSE WEAK 1+. PT NEEDS ASSISTANCE WITH ROM BUT IS ABLE TO WIGGLE TOES AND AID IN MOVEMENT. PT HAS WHEELCHAIR AT BEDSIDE. PT RUNNING LASIX 10ML/HR IN R HAND. WILL CONTINUE TO MONITOR PATIENT AT THIS TIME. WEAK IN L
--- NOTE | 2020-03-31 02:54 | NUR ---
I HAVE REVIEWED THE DATA COLLECTION BY ADARSH ALEXANDER ENTERED ON (DATE/TIME):03/30/2020 7P-7A I CONCUR WITH THE DATA AND ANY EXCEPTIONS OR COMMENTS ARE LISTED BELOW:
--- NOTE | 2020-03-31 04:49 | NUR ---
PT SLEPT PERIODICALLY THROUGHOUT THE NIGHT. MULTIPLE CALLS TO NURSES STATION FOR AID IN USING BEDSIDE URINAL TO VOID. PT VOIDED 950ML AND HAD 1 BM DURING THE NIGHT. PT STRAINED FOR BM AND WAS EDUCATED TO NOT STRAIN TO CAUSE HARM. PT DOING WELL ON 2L NC, AUDIBLE WHEEZING HAS DIMINISHED WITH WHEEZING HEARD ONLY ON AUSCULTATION. WILL CONTINUE TO MONITOR PATIENT AND REPORT TO ONCOMING RN.
[2020-03-31 05:31] VITALS: BP 142/66
[2020-03-31 06:57] LABS: BASOPHIL % 0.4 % (0-2)
[2020-03-31 07:21] LABS: BILIRUBIN TOTAL 0.5 mg/dL (0.20-1.00); CALCIUM 9.1 mg/dL (8.5-10.1); CARBON DIOXIDE 26.5 mmol/L (21-32); MAGNESIUM 2.3 mg/dL (1.8-2.4); PLATELET COUNT 90 x10^3mcL (130-400); POTASSIUM SERUM 4.5 mmol/L (3.5-5.1); RED CELL DISTRIBUTION WIDTH 16.5 % (11.5-14.5); TOTAL PROTEIN, SERUM 7.5 g/dL (6.4-8.2)
[2020-03-31 07:28] LABS: ALBUMIN 3.2 g/dL (3.4-5.0)
--- NOTE | 2020-03-31 07:30 | NUR ---
RECEIVED REPORT FROM FRONT DESK SUPERVISOR NURSE. PT IS A/OX4. TELE#12 NSR. PT IS ON 2LNC, O2 SAT 97%. PT HAS LLE +3 PITTING EDEMA. WOUND TO L FOOT WITH SOME DRAINAGE. R BKA. PROATHESIS IN THE ROOM. PT IS ON FLUID RESTRICTION 1.5L/DAY. IV TO L HAND, LASIX DRIP IS INFUSING AT 10ML/HR. ALL PROTOCOLS IN PLACE.
[2020-03-31 09:00] VITALS: BP 124/57
--- NOTE | 2020-03-31 10:00 | NUR ---
PT WAS SEEN BY DR WILLETT WHO DISSCUSSED CURRENT PLAN OF CARE WITH PT. PT AGREED TO PUT PATEL. AWAITING FOR ORDER.
--- NOTE | 2020-03-31 10:04 | NUR ---
WOUND CARE NURSE SAW PT AND PUT DRESSING ON. CLEANSED WITH WOUND CLENSER, PETTED DRY, AND APPLIED XEROFORM, 4X4 GAUZE, AND SECURED WITH S BANDAGE AROUND L LEG. SEE WOUND CARE INSTRUCTIONS.
--- NOTE | 2020-03-31 10:30 | NUR ---
Wound care evaluation note: Wound assessment done to this 64 y/o pt. aax4. Hx of right TELLY last year, stump wound healed scar. Left lower extremity chronic venous stasis ulcer +3 edema/erythema from knee to dorsal foot, dorsal pedal pulses diminished dorsal foot 3x2 dry scab, opal wound skin dry scaly. left medial ankle to anterior feet partial thickness skin loss, 7x15x0.2 cm and opal wound skin moist pale white ,weeping serous drainage, erythema, swelling with 3/10 pain to left lower extremity.POC discussed with primary RN and pt. pt. verbalizes understanding and state that he lives with his friend who can help him with dressing change.Per pt. he visited his properties supervisor regularly and will continue to follow with his doctor. Recommendations: -Keep LLE elevated, heel offloading -Cleanse LLE ulcerations with wound care solution, pad dry, apply xeroform dressing cover with 4x4 and wrap with LAURA bandage 3x/week and PRN if soiling -May discharge with wound care supplies
--- NOTE | 2020-03-31 11:50 | NUR ---
RECEIVED ORDER TO PUT PATEL FOR STRICT I/O. PATEL WAS PUT AT 11:50 USING STERILE TECHNIGUE, INFLATED WITH 10ML WATER BALOON. URINE OUTPUT: 200ML, YELLOW.
[2020-03-31 12:05] VITALS: BP 121/51
--- NOTE | 2020-03-31 12:20 | NUR ---
DR VILLANUEVA SAW PT AND TALKED ABOUT CURRENT PLAN OF CARE AND STARTING PT ON PHYSICAL THERAPY.
[2020-03-31 16:18] VITALS: BP 122/49
--- NOTE | 2020-03-31 18:41 | NUR ---
PT IS A/OX4. TELE #12, NSR 66. VS STABLE. PT IS ON 2LNC WITH HUMIDIFIER. O2 SAT 94%. LLE, COMPRESSION BANDAGE IS ON. CDI. DRESSING CHANGED TODAY BY WOUND CARE NURSE. PATEL WAS PLACED TODAY. IV TO RW, 22G, PATENT, LASIX DRIP 10MG IS INFUSING AT 10ML/HR. SYSTOLIC BP MAINTAINED ABOVE 90, SEE GRAPH. PT IS ON STRICT I/O ( FLUID RESTRICTION 1.5L). ALL PROTOCOLS IN PLACE. WILL ENDORSE CARE TO ONCOMING NURSE.
--- NOTE | 2020-03-31 19:30 | NUR ---
RECIEVED PT FROM AM RN. PT IN BED RESTING, PT A&OX4, BREATHING E/U ON 2L NC. HEART SOUNDS NORMAL S1S2, DENIES CP, LUNG SOUNDS AUSCULTATED, WHEEZING, PT DENIES SOB. BOWEL SOUNDS ACTIVE, PT HAS R BKA AND LLE CELLULITIS WRAPPED AND BANDAGED BY WOUND NURSE TODAY, LLE ELEVATED ON PILLOW. PT HAS IV TO RIGHT WRIST, LASIX RUNNING AT 10ML/HR. PROSTHESIS AND WHEELCHAIR AT BEDSIDE, PT HAS NO CONCERNS AT THIS TIME. CALL LIGHT IN REACH.
[2020-03-31 20:48] VITALS: BP 127/55
[2020-04-01 05:57] VITALS: BP 117/56
--- NOTE | 2020-04-01 06:16 | NUR ---
PT REMAINED STABLE THROUGHOUT THE NIGHT. PT HAD NO EPISODES OF ACUTE DISTRESS. PT RECIEVED TWO DOSES OF ALBUMIN AND REMAINED ON THE CONTINUOUS LASIX DRIP. PTS IV TO RIGHT WRIST REMAINS INTACT AND PATENT. PT HAS NO CONCERNS AT THIS TIME. LLE REMAINS BANDAGED IN COMPRESSION DRESSING AND ELEVATED ON PILLOW. PROTHESIS AND WHEEL CHAIR AT BEDSIDE, PT REMAINS ON 2L O2 VIA NC. CALL LIGHT IN REACH, WILL CONTINUE TO MONITOR.
--- NOTE | 2020-04-01 07:30 | NUR ---
PT REPORT RECEIVED BY FUNERAL PREARRANGEMENT COUNSELOR RN. PT IS SLEEPING, AROUSABLE TO VERBAL STIMULI. A/Ox4. DENIES ANY PAIN AND SOB. ON 2L NC, SPO2 95%. PT AGREES TO HELPING REPOSITION Q.2H TODAY AND HELPING US TRACK HIS INTAKE. WOUND DRESSING ON L LEG IS DRY AND INTACT. SAFETY PRECAUTIONS IN PLACE. CALL LIGHT WITHIN REACH. WILL CONTINUE TO MONITOR.
[2020-04-01 08:17] VITALS: BP 113/48
--- NOTE | 2020-04-01 11:00 | NUR ---
PT IS AWAKE, COMFORTABLE. DENIES ANY NEEDS THIS TIME. CALL LIGHT WITHIN REACH, WILL CONTINUE TO MONITOR.
[2020-04-01 12:47] VITALS: BP 118/59
--- NOTE | 2020-04-01 13:00 | NUR ---
JERSEY BATH ADMINISTER TO PT WITH CAROLINE HENLEY.
[2020-04-01 13:21] LABS: BILIRUBIN TOTAL 0.48 mg/dL (0.20-1.00); CALCIUM 9.5 mg/dL (8.5-10.1); MAGNESIUM 2.3 mg/dL (1.8-2.4); POTASSIUM SERUM 4.3 mmol/L (3.5-5.1); TOTAL PROTEIN, SERUM 7.4 g/dL (6.4-8.2)
[2020-04-01 13:36] LABS: ALBUMIN 3.2 g/dL (3.4-5.0)
--- NOTE | 2020-04-01 15:51 | NUR ---
1. Recommend with CCHO 60 gm/Renal as tolerated.
--- NOTE | 2020-04-01 15:51 | NUR ---
Initial Nutrition Assessment: [address] JAMA[address] LENNON 64M MR Dx: CHF exacerbation, SOB, LLE cellulitis and open wounds PMHx: HTN, T2DM, peripheral vascular disease s/p R BNA, Charcot's Arthropathy, CAD s/p CABG, morbid obesity, Hyperlipidemia. PSHx: R BNA Labs: (03/31) BG 138H, BUN 69H, Cr 2.0H, ALB 3.2L, ALT 15L, ALK 116H, RBC 2.90L, H/H 8.9L/90L, Neut% 74.1H, PLT 90L (03/26) LDH 193H, HDL 32L, HbA1C 7.0% *TRIG, CHOL, LDL wnl Meds: Humulin R, Lasix, Bactroban, Coreg, Rocephin, metolazone, Colace, Ventolin, Dextrose 50%, Potassium CHL, Klor-Con, Mg, Zofran Diet: CCHO 60 g/K2 PO intake since admission: 60% - 100%, Average 95% x 11 meals Ht: 170.18 cm/67 in Wt: 145.66 kg/320 lb BMI: 50.3 kg/m2 Bed scale: 142.7 kg/314 lbs IBW: 64 kg/141 lbs (IBW - 5.9% BKA) ABW:84 kg/186 lbs% IBW: 216% UBW: 127 kg/280 lbs (2 months ago) Age: 64 y/o Food Allergies: none per pt Edema: +3 LLE Last BM: 04/01 per pt Skin: R BKA, wound to LLE with some drainage Dar: 15 Per H and P (03/27): This is a 63-year-old male past medical history significant for hypertension, type 2 diabetes, peripheral vascular disease status post right below knee amputation, CharcoAid foot deformity, CAD status post CABG, morbid obesity and hyperlipidemia. Patient to initially presented to ED with worsening edema/erythema and pain to left lower extremity, which was accompanied by worsening shortness of breath for the past 2 to 3 weeks. Of note patient reports he is on home O2. Otherwise patient denies fever/chills, chest pain, abdominal pain, nausea/vomiting, diarrhea/constipation, headache/dizziness and urinary symptoms. In ED patient was afebrile, vital signs stable. Laboratory work-up revealed renal insufficiency, elevated LDH and CRP. Also, elevated D-dimer. Normocytic anemia hemoglobin 9.3. Chest x-ray revealed interstitial infiltrates, mild cardiomegaly. X-ray of left ankle revealed soft tissue swelling. X-ray of left foot continued to show soft tissue swelling. Ultrasound of left lower extremity negative for DVT. Patient started on IV diuresis and empiric IV antibiotics and admitted for further evaluation/treatment. Pt was admitted with dx: Acute on chronic hypoxic respiratory failure, CHF exacerbation, Normocytic anemia, CKD stage III, Left lower leg cellulitis, History of CAD, Morbid obesity, Type [address] Note (04/01): Per progress note (04/01): Kidney function slightly improved after aggressive diuresis with Lasix drip. Patient is still in respiratory distress. During visit, pt was comfortable resting in bed, awake, alert, and oriented. Pt reported good appetite, no n/v/d/c, no chewing/swallowing difficulties. Pt stated he has been tolerating well his meals. Pt reported normal BM this morning. Pt reported UBW 280 lbs with about 40 lbs weight gain (12% weight gain) in 2 months d/t lack of physical movement d/t R BKA and wound to LLE. However, pt reported he can walk about 5 feet and stops d/t SOB. Additionally, pt's food tray was observed on his bedside table, and pt ate about 70% of his meals per observation. Problem with: N/V/D/C: none per pt Problems with: Chewing: Swallowing: none per pt Current appetite: good per pt Recent wt change: 40 lbs weight gain in 2 months %wt change: 12% weight gain Height: 67 in per pt Vitamin/Supplement use: none per pt Special diet at home: none per pt, but tries to decrease the portions of his meals Physical activity: pt can walk about 5 feet Nutrition education given (specify specific nutrition education and handout given): Explained TLC diet's recommendations, addressed the importance to reduce sodium, saturated fats, cholesterol, and trans fats. Recommended to eat more omega-3 fats and carbohydrates portion control. Written material: "Cardiac-TLC Nutrition Therapy" was provided to pt and he acknowledged understanding Food-drug interactions? Education given? n/a Estimated Nutritional Needs Based on adjusted body weight (84 kg) Energy: 1680 - 2100 kcal/day (20 - 25 kcal/kg CHF, BMI > 40) Protein: 67 - 84 g/day (0.8 - 1 g/kg CHF, CKD, BMI > 40, wound) Fluid: 1680 - 2100 mL/day (20 - 25 mL/kg for CHF) or per MD Nutrition Diagnosis: 1. Altered nutrition related lab values r/t DM and CKD a/e/b BG 138, HbA1C 7.0%, BUN 69H, Cr 2.0H 2. Obesity r/t imbalance intake and output a/e/b BMI > 40 kg/m2 and lack of physical activity. Intervention 1. Recommend with CCHO 60 gm/Renal as tolerated. Monitor/Evaluate Goal: PO intake at least 75% of estimated needs Monitor: PO intake, Labs, GI function, Body Weight F/U in 3-5 days as moderate risk 04/04-
--- NOTE | 2020-04-01 16:00 | NUR ---
PT IS SLEEPING, AROUSABLE TO VERBAL STIMULI. DENIES ANY PAIN AND SOB. CALL LIGHT WITHIN REACH. WILL CONTINUE TO [place].
[2020-04-01 17:24] VITALS: BP 117/57
--- NOTE | 2020-04-01 19:00 | NUR ---
PT IS CURRENTLY AWAKE, COMFORTABLE. DENIES ANY PAIN AND SOB. TOLERATING 2L NC WELL. I&Os RECORDED THROUGHOUT SHIFT USING BEDSIDE COUNT, STUDENT AND LICENSED AIRCRAFT MAINTENANCE ENGINEER LORY AWARE AND UPDATED SHEETS. INTAKE 1171ml, OUTPUT 3175ml. LEFT LEG WOUND DRESSING DRY AND INTACT. SAFETY PRECAUTIONS IN PLACE. WILL ENDORSE CARE TO NIGHT SHIFTR RN.
--- NOTE | 2020-04-01 19:30 | NUR ---
RECEIVED PT FROM DAYSHIFT NURSE. PT IS AAOX4, DENIES HEADACHE/NAUSEA/DIZZINESS. PT IS TELE #12, NSR, DENIES CHEST PAIN. PULSES ARE EQUAL BILATERALLY, WEAK PEDAL PULSES. PATIENT HAS BUE TRACE EDEMA AND LLE +1 EDEMA. PT HAS BILATERALLY DIMINISHED LUNG SOUNDS, ON 2L NC, DENIES SOB. NO ACUTE DISTRESS NOTED, EVEN AND UNLABORED BREATHING. ABDOMEN IS SOFT AND ROUND, NO PAIN UPON PALPATION. NORMOACTIVE X4 QUADRANTS, LAST BM 04/01. PT HAS PATEL CATHETER IN PLACE, DARK URINE, DRAINING BY GRAVITY. PT HAS GENERALIZED WEAKNESS, RIGHT BKA, WHEELCHAIR AT BASELINE. PT HAS OPEN WOUND TO LLE AND LEFT FOOT, DRESSING IN PLACE, CDI. PT HAS RIGHT WRIST 22G, LASIX 10ML/HR. SITE INTACT NO REDNESS OR SWELLING OBSERVED. ALL SAFETY MEASURES IN PLACE. BED IN LOWEST POSITION, CALL LIGHT WITHIN REACH. WILL CONTINUE TO MONITOR.
[2020-04-01 20:22] VITALS: BP 118/55
--- NOTE | 2020-04-02 00:52 | NUR ---
PATIENT RESTING IN BED WITH EYES CLOSED, NO ACUTE DISTRESS NOTED AT THIS TIME. IV TO RIGHT WRIST 22G, SITE ITNACT, NO REDNESS OR SWELLING NOTED. PT HAS LASIX 10ML/HR RUNNING AT SITE. ALL SAFETY MEASURES IN PLACE. BED IN LOWEST POSITION, CALL LIGHT WITHIN REACH. WILL CONTINUE TO MONITOR.
[2020-04-02 05:46] VITALS: BP 117/55
--- NOTE | 2020-04-02 06:11 | NUR ---
LASIX IV NOW DUE FOR CHANGE, ORIGINAL SCHEDULE 0200.
--- NOTE | 2020-04-02 06:54 | NUR ---
PATIENT RESTED INTERMITTENTLY WITH EYES CLOSED THROUGHOUT THE NIGHT. PT DENIES CHEST PAIN/SOB AT THIS TIME. PATIENT IS WHEEZING AUDIBLY AT THIS TIME. PT STATES IT IS DUE TO POSITIONING. ADJUSTED PATIENT ACCORDING, ON 2L NC AT THIS TIME, DENIES SOB. PATIENT STILL WITH AUDIBLE WHEEZING. IV TO RIGHT WRIST, LASIX 10ML/HR. ALL SAFETY MEASURES IN PLACE. BED IN LOWEST POSITION, CALL LIGHT WITHIN REACH. WILL ENDORSE TO DAYSHIFT NURSE.
--- NOTE | 2020-04-02 07:30 | NUR ---
PT RECEIVED FROM BUFFING WHEEL RAKER RN. PT IS SLEEPING, AROUSABLE TO VERBAL STIMULIL. DENIES ANY PAIN THIS TIME. DIMINISHED LUNG SOUNDS, OCCASIOANL WHEEZING HEARD FLORI, PT DENIES SOB, SPO2 96% BUFFING WHEEL RAKER RN REPORTS THAT THERE IS MORE WHEEZING UPON WAKING UP. L LEG DRESSING IS DRY AND INTACT. PATEL CATHER RECENTLY EMPTIED. RUNNING 10ml/hr LASIC ON R WRIST 22g. SAFETY PRECAUTIONS INN PLACE. CALL LIGHT WITHIN REACH. WILL CONTIUE TO MONITOR.
[2020-04-02 08:18] VITALS: BP 130/61
[2020-04-02 08:24] LABS: BASOPHIL % 0.6 % (0-2)
[2020-04-02 08:29] LABS: BILIRUBIN TOTAL 0.5 mg/dL (0.20-1.00); CALCIUM 9.7 mg/dL (8.5-10.1); CARBON DIOXIDE 32.7 mmol/L (21-32); CREATININE SERUM 1.8 mg/dL (0.7-1.3); MAGNESIUM 2.1 mg/dL (1.8-2.4); POTASSIUM SERUM 4.2 mmol/L (3.5-5.1); TOTAL PROTEIN, SERUM 7.5 g/dL (6.4-8.2)
[2020-04-02 08:40] LABS: PLATELET COUNT 101 x10^3mcL (130-400); RED CELL DISTRIBUTION WIDTH 15.7 % (11.5-14.5)
[2020-04-02 08:48] LABS: ALBUMIN 3.3 g/dL (3.4-5.0)
--- NOTE | 2020-04-02 12:10 | NUR ---
PER . WEAN PT OFF OXYGEN. PT MAY BE DISCHARGED TOMORROW.
--- NOTE | 2020-04-02 12:15 | NUR ---
DR. VILLANUEVA DELEGATED A VERBAL ORDER TO ME: CCHO 60g/RENAL DIET. WILL INPUT AND CHANGE PT CURRENT DIET STATUS.
--- NOTE | 2020-04-02 12:30 | NUR ---
ASSESSED PT SPO2 AFTER OFF OF OXYGEN FOR 10min, PT DENIES SOB. SPO2 IS 88-90%. PT PLACED ON 1L NC AND SPO2 AT 95%. WILL CONTINUE TO MONITOR,
[2020-04-02 12:34] VITALS: BP 128/58
--- NOTE | 2020-04-02 14:00 | NUR ---
PT IS AWAKE, ON HIS PHONE, COMFORTABLE. DENIES ANY NEEDS THIS TIME. SAFETY PRECAUTIONS IN PLACE. WILL CONTINUE TO MONITOR.
--- NOTE | 2020-04-02 15:40 | NUR ---
DIETITIAN CO-SIGN The Nutrition Notes documented by the Electrical Controls Designer have been reviewed. Reviewed/Co-Signed by: Tao Phipps Documentation Done by: Laurence Cisneros
[2020-04-02 17:41] VITALS: BP 113/52
--- NOTE | 2020-04-02 18:15 | NUR ---
L LEG DRESSING CHANGED PER ASSOCIATE WEB DEVELOPER ORDER
--- NOTE | 2020-04-02 19:00 | NUR ---
PT IS CURRENTLY AWAKE. DENIES ANY PAIN AND SOB THIS TIME. DRESSING CHANGED DURING THIS SHIFT FOR BECAUSE IT IS SOILED. TOLERATING 1L NC WELL. SAFETY PRECAUTIONS IN PLACE. CALL LIGHT WITHIN REACH. WILL ENDORSE CARE TO SALES OPERATIONS LEAD RN
--- NOTE | 2020-04-02 19:30 | NUR ---
RECEIVED PT FROM DAYSHIFT NURSE. PT IS AAOX4, DENIES HEADACHE/NAUSEA/DIZZINESS. PT IS TELE #12, NSR, DENIES CHEST PAIN. PULSES ARE EQUAL BILATERALLY, NO EDEMA NOTED. PATIENT HAS BILATERALLY DIMINISHED LUNG SOUNDS, ON 1L NC, DENIES SOB. NO ACUTE DISTRESS NOTED, EVEN AND UNLABORED BREATHING. ABDOMEN IS OBESE, NO PAIN UPON PALPATION. NORMOACTIVE X4 QUADRANTS, LAST BM 04/02. PT USES BED CHOWDHURY, PT HAS PATEL CATHETER IN PLACE, DARK YELLOW IN COLOR. PT DEMONSTRATES GENERALIZED WEAKNESS, RIGHT BKA. PATIENT HAS OPEN WOUND TO LEFT FOOT AND LEFT LEG, DRESSING IN PLACE, CDI. PT DENIES PAIN AT THIS TIME. IV TO RIGHT WRIST 22G, LASIX 12ML/HR. PT IS CALM AND COOPERATIVE. ALL SAFETY MEASURES IN PLACE. BED IN LOWEST POSITION, CALL LIGHT WITHIN REACH. WILL CONTINUE TO MONITOR.
[2020-04-02 19:56] VITALS: BP 115/50
--- NOTE | 2020-04-03 01:20 | NUR ---
PATIENT RESTING INTERMITTENTLY WITH EYES CLOSED. IV TO RIGHT WRIST RUNNING LASIX 12ML/HR. PATIENT DENIES SOB AT THIS TIME. PATIENT REMAINS ON 1L NC. ALL SAFETY MEASURES IN PLACE. BED IN LOWEST POSITION, CALL LIGHT WITHIN REACH. WILL CONTINUE TO MONITOR.
--- NOTE | 2020-04-03 04:44 | NUR ---
CONTACT RT FOR TREATMENT, PATIENT AUDIBLY WHEEZING, STATES HE IS SOB. NEW IV STARTED IN RFA 22G, ADEQUATE FLUSH AND BLOOD RETURN. RIGHT WRIST 22G INTACT. NO REDNESS OR SWELLING NOTED.
[2020-04-03 06:04] VITALS: BP 114/52
--- NOTE | 2020-04-03 06:53 | NUR ---
PATIENT RESTED THROUGHOUT SHIFT WITH EYES CLOSED. NO ACUTE CHANGES IN PATIENT'S STATUS AT THIS TIME. AUDIBLE WHEEZING OBSERVED, PATIENT DENIES SOB. COMMUNICATED WITH RT. PATIENT REMAINS ON 1LNC, DENIES CHEST PAIN WELL. IV TO RFA AND R WRIST REMAIN INTACT. LASIX 12ML/HR RUNNING ON RIGHT WRIST IV. ALL SAFETY MEASURES IN PLACE. BED IN LOWEST POSITION, CALL LIGHT WITHIN REACH.WILL ENDORSE TO DAYSHIFT NURSE.
--- NOTE | 2020-04-03 07:29 | NUR ---
ENDORSED CARE TO DAYSHIFT NURSE. ALL QUESTIONS/CONCERNS ADDRESSED.
--- NOTE | 2020-04-03 07:30 | NUR ---
RECEIVED PATIENT SITTING UP IN BED. AWAKE ALERT AND ORIENTED. TELEL 12 NSR. LASIX INFUSING WELL TO RT WRIST, HL RT F/A PATENT. RESP EVEN AND UNLABORED, DIMINISHED BASES, WITH AUDIBLE WHEEZING. ON O2 AT 1L VIA N/C. SOB ON EXERTION NOTED. PATEL CATH DRAINING YELLOW URINE. PATIENT HAS RT BKA, PROSTHESIS AT BEDSIDE. PATIENT HAS DRESSING OVER LEFT LEG AND LEFT FOOT WOUND, C/D/I. 1+ EDEMA NOTED LLE, AND TRACE EDEMA NOTED BUE. DENIES ANY PAIN OR DISCOMFORT AT THIS TIME.
[2020-04-03 07:51] VITALS: BP 135/60
[2020-04-03 11:57] VITALS: BP 126/55
[2020-04-03 16:11] VITALS: BP 116/52
--- NOTE | 2020-04-03 18:43 | NUR ---
PATIENT SITTING UP IN BED, REMAINS ALERT AND ORIENTED. NO C/O PAIN OR DISCOMFORT. IV LASIX INFUSING WELL, SITE PATENT. O2 REMAINS ON AT 1L VIA N/C. NO ACLUTE DISTRESS MOTED. WILL CONTINUE TO MONITOR.
--- NOTE | 2020-04-03 19:15 | NUR ---
RECEIVED PATIENT FROM DAY SHIFT NURSE. PATIENT IN NO ACUTE DISTRESS AT THIS TIME. AWAKE, ALERT AND ORIENTED X4. NSR ON TELE. RIGHT BKA, DRESSING TO LLE, CDI. EVEN AND UNLABORED BREATHING NOTED ON 1LNC. DENIES SOB AT THIS TIME. PATEL CATH IN PLACE, DRAINING TO GRAVITY. YELLOW URINE NOTED. RW AND RFA IVS WNL. LASIN INFUSING WELL. NO ERYTHEMA/EDEMA TO IV SITE. BED IN LOWEST POSITION. CALL LIGHT WITHIN REACH. SIDE RAILS UP X2.
[2020-04-03 20:51] VITALS: BP 115/55
--- NOTE | 2020-04-04 00:10 | NUR ---
sleeping at this time, no acute distress. nsr on tele. eu breathing noted on nc. cristina in place, draining to gravity. no c/o pain. all needs/concerns attended to at this time.
[2020-04-04 05:49] VITALS: BP 118/55
[2020-04-04 06:58] LABS: BASOPHIL % 0.7 % (0.2-1.5)
[2020-04-04 07:32] LABS: CALCIUM 10.1 mg/dL (8.5-10.1); CARBON DIOXIDE 39.9 mmol/L (21-32); CREATININE SERUM 1.7 mg/dL (0.7-1.3); PLATELET COUNT 117 x10^3mcL (152-348); POTASSIUM SERUM 4.2 mmol/L (3.5-5.1); RED CELL DISTRIBUTION WIDTH 15.8 % (12.1-16.2)
--- NOTE | 2020-04-04 07:34 | NUR ---
CARE ENDORSED TO NURSE ANDREW
--- NOTE | 2020-04-04 07:42 | NUR ---
RECEIVED AWAKE, ALERT AND ORIENTED. NO ACUTE RESP. DISTRESS NOTED. ON O2 1L N/C SATS 96%. VS WNL, PT ON LASIX DRIP AT 12ML/HR AND SITE WNL. NO C/O PAIN OR DISCOMFORT AT THIS TIME. CALL LIGHT WITHIN REACH. WILL CONTINUE WITH PLAN OF CARE.
[2020-04-04 07:51] VITALS: BP 120/56
[2020-04-04 11:28] VITALS: BP 110/60
[2020-04-04 16:10] VITALS: BP 118/63
--- NOTE | 2020-04-04 16:28 | NUR ---
COVID TEST FOR SNF PLACEMENT DONE AND SAMPLE TAKEN TO THE LAB. PT RESING IN NO ACUTE DISTRESS. NO C/O PAIN AT THIS TIME. CALL LIGHT WITHIN REACH.
--- NOTE | 2020-04-04 18:57 | NUR ---
PT REMAINS IN NO DISTRESS, AWAKE AND ALERT. NO CHANGES IN VS. NO C/O PAIN OR DISCOMFORT. HL PATENT. CALL LIGHT WITHIN REACH. WILL BE ENDORSED TO INCOMING SHIFT.
--- NOTE | 2020-04-04 19:38 | NUR ---
RECEIVED PT FROM AM NURSE. A/O X4, ABLE TO MAKE NEEDS KNOWN. NO ACUTE RESP DISTRESS NOTED, BREATHING EVEN AND UNLABORED. DENIES CP/PRESSURE AT THIS TIME, NSR ON TELE#12 HR:65. BS+ [id number], DENIES N/V/D. PATEL CATHETER IN PLACE, DRAINING YELLOW URINE. GEN WEAKNESS NOTED. R BKA, L FOOT/LEG WOUND, DRESSING IN PLACE. ALL SAFETY PRECAUTIONS IN PLACE. WILL CONT TO MONITOR.
[2020-04-04 20:52] VITALS: BP 106/85
[2020-04-05 05:02] VITALS: BP 109/45
--- NOTE | 2020-04-05 08:00 | NUR ---
RECEIVED AWAKE, ALERT AND ORIENTED. IN NO ACUTE RESP. DISTRESS. ON O2 1L N/C SATS 94%. MILD SOB WITH ACTIVITIES. VS WNL. HL X2 PATENT. NO C/O PAIN OR DISCOMFORT AT THIS TIME. CALL LIGHT WITHIN REACH. WILL CONTINUE WITH PLAN OF CARE.
[2020-04-05 09:34] VITALS: BP 106/53
[2020-04-05 13:04] VITALS: BP 118/60
--- NOTE | 2020-04-05 16:20 | NUR ---
DRESSING TO LT LE CHANGED. SITE CLAENED WITH WOUND CLEANSER, PATTED DRY AND XEROFORM APPLIED PER ORDER. COVERED WITH DRY DRESSING AND WRAPPED WITH LAURA WRAP. PT TOLERATED WELL. DC PHOTO TAKEN.
--- NOTE | 2020-04-05 16:50 | NUR ---
PATEL CATH REMOVED, PT DUIE TO VOID AND AWARE.
[2020-04-05 17:40] VITALS: BP 118/60
--- NOTE | 2020-04-05 18:02 | NUR ---
PT WILL BE TRANSFERED TO [facility] THIS PM. REPORT GIVEN TO MS. GONZALES
--- NOTE | 2020-04-05 19:01 | NUR ---
PT VOIDED X1 AND NO C/O DYAURIA. REMAINS IN NO ACUTE RESP. DISTRESS. AWAKE AND ALERT. WILL BE TRANSFRED TO [facility] ONCE THEY GET BERIATRIC BED. TRANSPORTATION IN ON WILL CALL. PT RESTING AT THIS TIME. HL REMOVED AND TELE WAS ALSO REMOVED. NO C/O PAIN AT THIS TIME. CALL LIGHT WITHIN REACH. WILL BE ENDORSED TO INCOMING SHIFT.
[2020-04-05 20:57] VITALS: BP 119/53
[2020-04-05 21:33] LABS: CALCIUM 9.6 mg/dL (8.5-10.1); CARBON DIOXIDE 39.8 mmol/L (21-32); CREATININE SERUM 1.8 mg/dL (0.7-1.3)
[2020-04-06 06:09] VITALS: BP 111/51
--- NOTE | 2020-04-06 06:56 | NUR ---
PT RESTING COMFORTABLY IN BED. NO ACUTE RESP DISTRESS NOTED, BREATHING EVEN AND UNLABORED. DENIES CP/PRESSURE AT THIS TIME. AWAITING D/C TO [facility] PENDING PCR RESULT AND BARIATRIC BED AT THEIR FACILITY, PER KARL.
--- NOTE | 2020-04-06 07:51 | NUR ---
RECIEVED REPORT FROM [facility] NURSE. PATIENT IS CURRENTLY OBSERVED RESTING IN BED. RESPIRATIONS EQUAL AND UNLABORED WITH SYMMETRICAL CHEST RISE AND FALL. PATIENT IS CURRENTLY ON ONE LITER NASAL CANNULA. PATIENT HAS NO IV ACCESS AT THIS TIME. DOCTOR AWARE. NO IV MEDS ON BOARD. TRANSFER TO [facility] CURRENTLY PENDING. SAFETY PRECAUTIONS IN PLACE. CALL LIGHT WITHIN REACH. WILL CONTINUE TO PROVIDE CARE FOR PATIENT.
[2020-04-06 08:30] VITALS: BP 116/56
[2020-04-06 09:13] LABS: CALCIUM 9.5 mg/dL (8.5-10.1); CARBON DIOXIDE 38.8 mmol/L (21-32); CREATININE SERUM 1.7 mg/dL (0.7-1.3); POTASSIUM SERUM 4.1 mmol/L (3.5-5.1)
[2020-04-06 12:30] VITALS: BP 119/51
--- NOTE | 2020-04-06 15:52 | NUR ---
CALLED [facility] AND GAVE REPORT OF PATIENT AND HE WILL BE TRANSPORTED TO THEIR FACILITY LATER TODAY.
[2020-04-06 17:41] VITALS: BP 113/60
== END 2020-04-06 19:15 | DRG 280 ==
LOC: ED 09:45 → DU 14:59
PROVIDERS: Emergency Medicine; Hospitalist; Internal Medicine; ADMIT Hospitalist; ATTEND Hospitalist
DX: I13.0 Hypertensive heart and chronic kidney disease with heart failure and stage 1 through stage 4 chronic kidney disease, or unspecified chronic kidney disease (principal); J96.21 Acute and chronic respiratory failure with hypoxia; I21.4 Non-ST elevation (NSTEMI) myocardial infarction; Z68.42 Body mass index [BMI] 45.0-49.9, adult; L03.116 Cellulitis of left lower limb; Z20.828 Contact with and (suspected) exposure to other viral communicable diseases; I50.9 Heart failure, unspecified; E78.00 Pure hypercholesterolemia, unspecified; E11.621 Type 2 diabetes mellitus with foot ulcer; L97.529 Non-pressure chronic ulcer of other part of left foot with unspecified severity; E11.51 Type 2 diabetes mellitus with diabetic peripheral angiopathy without gangrene; N18.30 Chronic kidney disease, stage 3 unspecified; E11.22 Type 2 diabetes mellitus with diabetic chronic kidney disease; E11.40 Type 2 diabetes mellitus with diabetic neuropathy, unspecified; I42.9 Cardiomyopathy, unspecified; E87.5 Hyperkalemia; I25.10 Atherosclerotic heart disease of native coronary artery without angina pectoris; E66.01 Morbid (severe) obesity due to excess calories; E78.5 Hyperlipidemia, unspecified; D64.9 Anemia, unspecified; Z83.3 Family history of diabetes mellitus; Z89.611 Acquired absence of right leg above knee; Z80.9 Family history of malignant neoplasm, unspecified; Z95.1 Presence of aortocoronary bypass graft; Z79.82 Long term (current) use of aspirin; Z79.4 Long term (current) use of insulin; Z79.899 Other long term (current) drug therapy; I25.2 Old myocardial infarction; Z99.81 Dependence on supplemental oxygen
CPT/HCPCS: 36600; 82962; 83880; 85378; 87804; 97110-GP; 97530-GP; G0378; J0456; J0696; J1120; J1644; J1815; J1940; J2270; J3370; J3490; J3535; J7040; P9047; U0003